=== PATIENT | male | born 1975 | race Caucasian/White ===

== ENCOUNTER 2023-11-03 20:51 | Emergency (ER) | payer OTHER, SELFPAY ==
[2023-11-03 20:56] VITALS: BP 156/90
[2023-11-03] MEDS: ZOFRAN 4 MG IV (22:23)
--- NOTE | 2023-11-03 22:27 | ED.GENMED ---
History of Present Illness
General
Chief Complaint: Dizziness
Source: patient
Exam Limitations: none
Time Seen by Provider: 11/03/23 22:10
Travel History
Have you had any contact with someone who has COVID-19?: No
Do you have any symptoms of coronavirus? Fever > 100 degrees, chills, cough, shortness of breath, sore throat, loss of taste or smell, muscle aches, or headache?: No
History of Present Illness
History of Present Illness:
48-year-old male presents with onset of dizziness today and has been intermittent since. He describes a spinning sensation. The spinning sensation is worse with position change. No significant headache. No chest pain or shortness of breath. No
neck pain or vision change. About 5 days ago, he fell and hit his head while skiing. There is no loss of conscious at the time. No vomiting. He continued to ski. He has not had any symptoms since. He noticed that this morning when he rolled
over in bed to reach for his alarm clock. He also noticed that increase significantly with associated nausea and vomiting when he was lying on the CAT scan table prior to coming into the room
Phy Exam
Physical Exam
Physical Exam:
General: Well-appearing male no acute respiratory distress
HEENT: Normocephalic atraumatic pupils equal round reactive to light
Heart: Regular rate and rhythm no murmurs
Lungs: Clear to auscultation bilaterally no wheezing
Neurologic exam: Alert and oriented finger-nose intact mild horizontal nystagmus noted [place]-Hallpike maneuver worse to the right [id number] intact
MSK: C-spine nontender.
Course
Orders/Labs/Results
Orders:
Orders
11/03/23 21:00
Electrocardiogram (*1) Urgent
Reason for Study: Vertigo / Dizzy
CT Head W/o Iv Contrast Urgent
Comment:
Reason For Exam: dizziness
EKG- Treatment ONCE
11/03/23 22:15
Complete Blood Count/With Diff Urgent
Comprehensive Metabolic Panel Urgent
11/03/23 22:19
Ondansetron Injectable [Zofran] 4 mg .ROUTE .STK-MED ONE
11/03/23 22:22
Ondansetron Injectable [Zofran] 4 mg IV NOW STA
11/03/23 22:26
Meclizine [Antivert] 25 mg PO NOW STA
Abnormal Lab Results
11/03/23
22:15
BUN 21 H mg/dl
(9-20)
Glucose 134 H mg/dl
(70-99)
11/03/23 22:15
11/03/23 22:15
Vital Signs
Initial and Last Documented VS:
Initial Vital Signs
Temp Pulse Resp BP Pulse Ox
97.7 F 65 20 156/90 99
11/03/23 20:56 11/03/23 20:56 11/03/23 20:56 11/03/23 20:56 11/03/23 20:56
Last Documented Vital Signs
Temp Pulse Resp BP Pulse Ox
97.7 F 65 20 156/90 99
11/03/23 20:56 11/03/23 20:56 11/03/23 20:56 11/03/23 20:56 11/03/23 20:56
*Critical Care Note
Total Time (30-74mins, 75-104mins- exclusive of procedures): Not Applicable
Update Note
Update Note:
Patient given Zofran and meclizine. CT was officially negative. He is now feeling much better. Dizziness is gone. Will discharge home with meclizine. Suspect positional vertigo. Do not suspect acute CVA
ED Attending Note
-
Portions of this chart may have been created with voice recognition software.� Occasional wrong word or��sound alike� substitutions may have occurred due to the inherent limitations of voice recognition software.
Discharge Plan
Departure
Patient Disposition: Home (Routine Discharge)
Date of Disposition: 11/04/23
Time of Disposition: 00:25
Patient with high blood pressure during this ER visit?: No
Discharge Problem:
Benign positional vertigo
Prescriptions:
New
meclizine 25 mg tablet
25 mg PO TID PRN (Reason: dizziness) Qty: 10 0RF
Referrals:
Renny Santiago MD [Family Provider] -
Activity Restrictions/Additional Instructions:
Use meclizine if needed for dizziness. Rest. Drink plenty fluids. Return if worse otherwise follow-up with family
Interventions
Interventions:
*Risk Screen - Suicide Last Done: 11/03/23 20:56
*General Assessment Last Done: 11/03/23 20:56
ED- Fall Risk Assessment Last Done: 11/03/23 22:18
ED- Neurological Assessment Last Done: 11/03/23 22:18
ED- Cardiac Assessment Last Done: 11/03/23 22:18
ED Swallowing Screen Last Done: 11/03/23 22:30
[2023-11-03 22:28] LABS: % Basophils 0.4 % (0-2); % Eosinophils 1.5 % (0-6); % Immature Granulocytes 0.4 % (0-0.5); % Lymphocytes 22.4 % (20.5-51.1); % Monocytes 7.2 % (1.7-9.3); % Neutrophils 68.1 % (42.2-75.2); Absolute Eosinophils 0.1 10^3/uL (0-0.7); Absolute Lymphocytes 1.5 10^3/uL (1.2-3.4); Absolute Monocytes 0.5 10^3/uL (0.1-0.6); Absolute Neutrophils 4.6 10^3/uL (1.4-6.5); Hematocrit 39.3 % (39.0-52.0); Mean Corp Hgb Conc. 35.6 g/dL (33.0-37.0); Mean Corpuscular Hgb 29.4 pg (27.0-31.0); Mean Corpuscular Volume 82.6 fL (80.0-94.0); Mean Platelet Volume 9.4 fL (7.4-10.4); Nucleated Red Blood Cells % 0 % (-); Platelet Count 260 10^3/uL (130-400); Red Blood Cell Count 4.76 10^6/uL (4.70-6.10); Red Cell Dist. Width 12.3 % (11.5-14.5); White Blood Cell Count 6.8 10^3/uL (4.8-10.8)
[2023-11-03 22:47] LABS: ALT (SGPT) 43 U/L (0-50); AST (SGOT) 30 U/L (17-59); Albumin 4.4 g/dl (3.5-5.0); Alkaline Phosphatase 66 U/L (38-126); Blood Urea Nitrogen 21 mg/dl (9-20); Calcium 9.5 mg/dl (8.4-10.2); Carbon Dioxide 25 mmol/L (22-30); Chloride 99 mmol/L (98-107); Glucose 134 mg/dl (70-99); Potassium 3.9 mmol/L (3.5-5.1); Sodium 135 mmol/L (135-145); Total Bilirubin 0.9 mg/dl (0.2-1.3); Total Protein 7.1 g/dl (6.3-8.2); eGFR > 60.00
[2023-11-03] MEDS: ANTIVERT 25 MG PO (22:47)
== END 2023-11-04 01:05 | disposition home or self-care (01) ==
LOC: EMR 20:51
PROVIDERS: Emergency Medicine; EMERGENCY PHYSICIAN Emergency Medicine; FAMILY PHYSICIAN Family Medicine
DX: H81.10 Benign paroxysmal vertigo, unspecified ear (principal); R11.2 Nausea with vomiting, unspecified
CPT/HCPCS: 99284; 70450; 80053; 85025; 93005

== ENCOUNTER → 2023-12-11 15:04 | Outpatient (REF) | payer OTHER, SELFPAY | LOC: RAD 15:04 | PROVIDERS: ATTENDING PHYSICIAN Family Medicine | DX: M25.522 Pain in left elbow (principal) | CPT/HCPCS: 73080 ==